=== PATIENT | female | born 1975 | race African-American/Black ===

== ENCOUNTER 2016-07-21 14:20 | Outpatient (CLI) | payer BC ==
[2016-07-21 14:46] VITALS: BP 128/72
[2016-07-21 15:23] LABS: EOSINOPHIL (%) 1.1 % (0-5); EOSINOPHIL COUNT 0.1 K/uL (0-0.3); HEMATOCRIT 32.6 % (36.0-46.0); IMMATURE GRANULOCYTE (%) 0.7 % (0.0-0.7); IMMATURE GRANULOCYTE COUNT 0.1 K/uL; INSTRUMENT ABS NEUTROPHIL CT 5.2 K/uL; LYMPHOCYTE COUNT 1.2 K/uL (1.0-2.8); MCH 22.8 PG (29.0-34.0); MCHC 31.9 G/DL (30.0-36.0); MCV 71.3 FL (83-99); MEAN PLAT.VOLUME 10.2 uM^3 (9.5-12.4); MONOCYTE (%) 7.6 % (3-12); MONOCYTE COUNT 0.5 K/uL (0-0.8); NEUTROPHIL COUNT 5.2 K/uL (1.8-6.4); PLATELET COUNT 230 K/uL (156-360); RBC DIS.WIDTH-CV 15.7 % (11.8-14.6); RBC DIS.WIDTH-SD 39.8 % (39-53); RED BLOOD COUNT 4.57 M/uL (3.80-5.20)
== END 2016-07-21 16:47 | disposition home or self-care (01) ==
LOC: LDRP-OP 14:20 → 2WEST 14:21
PROVIDERS: Advanced Practice Midwife
DX: O46.92 Antepartum hemorrhage, unspecified, second trimester (principal); Z3A.28 28 weeks gestation of pregnancy; O44.12 Complete placenta previa with hemorrhage, second trimester; O09.512 Supervision of elderly primigravida, second trimester; O09.812 Supervision of pregnancy resulting from assisted reproductive technology, second trimester
CPT/HCPCS: 59025; 85025; G0378